=== PATIENT | male | born 1960 | race Caucasian/White ===

== ENCOUNTER 2019-10-27 11:25 | Emergency (ER) | payer BC, OTHER ==
[2019-10-27] MEDS ORDERED: LIDOCAINE 1% INJ 10MG/ML (20 ML MDV) SQ ONE (11:47)
[2019-10-27] MEDS ORDERED: LIDOCAINE/EPINEPHR/TETRACAINE 5 ML BOTTLE TOPICAL ONE (11:47)
[2019-10-27] MEDS ORDERED: TOPICAL SKIN ADHESIVE 1 EACH AMP TOPICAL ONE (11:49)
--- NOTE | 2019-10-27 11:51 | ED ---
Head Injury HPI - General Chief complaint: Head Injury Stated complaint: Face/head injury Time Seen by Provider: 10/27/19 11:38 Source: patient, RN notes reviewed, old records reviewed Mode of arrival: ambulatory Limitations: no limitations - History of Present Illness Initial comments: This Patient is a pleasant 59-year-old male who presents to the ER today for evaluation for head injury facial lacerations after a hockey injury. Patient reports that he was skating and collided with another player. Patient reports that he was hit with the player's helmet on the face causing lacerations. He was wearing a helmet himself. He states that after the injury he did vomit multiple times. He denies any intraoral lacerations or broken teeth. Denies a ny significant neck pain or any other injuries. Patient was seen first at [facility] and then sent here for further evaluation. Pt is not on blood thinner. - Related Data Allergies/Adverse reactions: Allergies Allergy/AdvReac Type Severity Reaction Status Date / Time No Known Allergies Allergy Verified 10/27/19 11:36 Review of Systems ROS Statement: Those systems with pertinent positive or pertinent negative responses have been documented in the HPI. ROS Other: All systems not noted in ROS Statement are negative. Past Medical History Past Medical History: No Reported History History of Any Multi-Drug Resistant Organisms: None Reported Past Surgical History: Hernia Repair Past Psychological History: No Psychological Hx Reported Smoking Status: Never smoker Past Alcohol Use History: Occasional General Exam - General Exam Comments Initial Comments: 59 year old male, no distress. Limitations: no limitations General appearance: alert, in no apparent distress Head exam: Present: atraumatic, normocephalic, normal inspection Eye exam: Present: normal appearance, PERRL, EOMI, periorbital swelling, periorbital tenderness (Patient has periorbital left eye swelling and evidence of ecchymosis.). Absent: scleral icterus, conjunctival injection ENT exam: Present: normal exam, mucous membranes moist, other (Patient has a flap laceration over the upper lip. abrasion over cheek. ) Neck exam: Present: normal inspection. Absent: tenderness, meningismus, lymphadenopathy Respiratory exam: Present: normal lung sounds bilaterally. Absent: respiratory distress, wheezes, rales, rhonchi, stridor Cardiovascular Exam: Present: regular rate, normal rhythm, normal heart sounds. Absent: systolic murmur, diastolic murmur, rubs, gallop, clicks GI/Abdominal exam: Present: soft, normal bowel sounds. Absent: distended, tenderness, guarding, rebound, rigid Back exam: Present: normal inspection Neurological exam: Present: alert, oriented X3, CN II-XII intact Psychiatric exam: Present: normal affect, normal mood Skin exam: Present: warm, dry, intact, normal color. Absent: rash Course Vital Signs 10/27/19 11:33 Temperature 97.2 F L Pulse Rate 57 L Respiratory 18 Rate Blood Pressure 131/72 O2 Sat by Pulse 98 Oximetry Procedures - Laceration Laceration #1 Site: face Size (cm): 4 Description: flap Depth: simple, single layer Anesthetic Used: lidocaine 1% Anesthesia Technique: local infiltration Amount (mls): 2 Pre-repair: wound explored, irrigated extensively Type of Sutures: nylon Size of Sutures: 6-0 Number of Sutures: 6 Technique: simple, interrupted Patient Tolerated Procedure: well, no complications Medical Decision Making - Medical Decision Making 5-year-old male presents emergency department today with facial injury and vomiting after hitting his head with another tennis player. Patient had a flap laceration over the right upper lip. Laceration was cleaned and closed with 6 sutures. No internal oral lacerations no missing teeth. CT brain and C-spine and facial bones were negative for acute hemorrhage or fractures. Patient likely did suffer a concussion as he did have vomiting after the head injury. I advised Patient have close follow-up with primary care doctor and suture care instructions. - Radiology Data Radiology results: report reviewed No acute fracture or dislocation evident cervical spine. No acute intracranial hemorrhage or midline shift is seen. No displaced fracture. Disposition Clinical Impression: Head injury, Facial laceration Disposition: HOME SELF-CARE Condition: Good Instructions (If sedation given, give patient instructions): Concussion (ED), Laceration (ED) Additional Instructions: Please return to the emergency room in 7 days to have sutures removed. Please leave wound covered for the first 24-48 hours and then leave open to air after that time. Please use clean soap and water to clean the suture area to prevent scabbing over the top of your sutures. Please watch for any signs of infection which may include but not limited to increased pain, swelling, redness, fever or chills. Please return to the emergency room if any signs of infection do occur. Please return to the emergency room for any other concerns or complications. Is patient prescribed a controlled substance at d/c from ED?: No Referrals: Alyssa Brown MD [Primary Care Provider] - 1-2 days Time of Disposition: 13:26
--- NOTE | 2019-10-27 12:43 | CT ---
EXAMINATION TYPE: CT brain cspine wo con, CT facial bones wo con DATE OF EXAM: 10/27/2019 COMPARISON: Prior CT facial bones February 11, 2011. HISTORY: Multiple Left sided facial lacerations. Injury with loss of consciousness, left-sided facial pain, neck pain. CT DLP: 1196.1 mGycm. Automated Exposure Control for Dose Reduction was Utilized. TECHNIQUE: CT scan of the head , facial bones, and cervical spine are performed without contrast. FINDINGS: There is no acute intracranial hemorrhage, mass effect, or midline shift identified. The ventricles and sulci are within normal limits in size for patient's age. The calvarium is intact. The mandible is intact. Temporomandibular joints are maintained bilaterally. Nasal bones are intact. Zygomatic arches are intact bilaterally. Orbital floors and yeung are intact. Globes are intact bilat erally. Intraconal fat is preserved. The pterygoid plates are intact. The maxilla is intact. Interval sinus surgery noted. No new suspicious opacification. Cervical spine is visualized in its entirety from C1 through upper thoracic levels and demonstrates s coliotic curvature on coronal images without evidence of acute fracture or dislocation. There is exa ggerated curvature on sagittal images. Prevertebral soft tissue appears within normal limits. The C1 -C2 articulation is within normal limits on the coronal images. Vertebral body heights are maintaine d. Mild disc space narrowing C6-C7 level. Spinal canal preserved. Axial images show no large disc her niation. Thyroid gland is unremarkable. Lung apices show no pneumothorax. IMPRESSION: 1. There is no acute fracture or dislocation evident in the cervical spine. 2. No acute intracranial hemorrhage or midline shift is seen. 3. No acute displaced facial bone fracture.
[2019-10-27 13:33] VITALS: BP 134/84; PULSE 51; RESP 17; TEMP 97.9
== END 2019-10-27 13:52 | disposition home or self-care (01) ==
LOC: EC 11:25
DX: S01.81XA Laceration without foreign body of other part of head, initial encounter (principal); W51.XXXA Accidental striking against or bumped into by another person, initial encounter; Y93.22 Activity, ice hockey
CPT/HCPCS: 72125; 70486; 70450; 99284; 12013; J2001